=== PATIENT | male | born 1965 | race Caucasian/White ===

== ENCOUNTER 2019-03-13 14:42 | Inpatient (IN) | payer OTHER ==
[2019-03-13 17:28] VITALS: BMI 23.7
--- NOTE | 2019-03-13 19:06 | HP ---
COWS - Scale Resting Pulse: 1= [place] 81-100 Sweatin=Flushed/Facial Moisture Restless Observation: 1= Difficult to Sit Still Pupil Size: 0= Normal to Room Light Bone or Joint Aches: 2= Severe Diffuse Aches Runny Nose/ Eye Tearin= Runny Nose/Eyes GI Upset > 30mins: 3= Vomiting/Diarrhea Tremor Observation: 0= None Yawning Observation: 2= >3x During Session Anxiety or Irritability: 0= None Goose Flesh Skin: 0=Smooth Skin COWS Score: 13 CIWA Score Nausea/Vomitin-Int. Nausea w/Dry Heave Muscle Tremors: None Anxiety: 0-No Anxiety, at Ease Agitation: 1-Slight > Activity Paroxysmal Sweats: 3 Orientation: 0-Oriented Tacttile Disturbances: 0-None Auditory Disturbances: 0-None Visual Disturbances: 2-Mild Sensitivity Headache: 2-Mild CIWA-Ar Total Score: 12 - Admission Criteria OASAS Guidelines: Admission for Medically Managed Detox: Requires at least one of the followin. CIWA greater than 12 2. Seizures within the past 24 hours 3. Delirium tremens within the past 24 hours 4. Hallucinations within the past 24 hours 5. Acute intervention needed for co occurring medical disorder 6. Acute intervention needed for co occurring psychiatric disorder 7. Severe withdrawal that cannot be handled at a lower level of care (continued vomiting, continued diarrhea, abnormal vital signs) requiring intravenous medication and/or fluids 8. Admitting History and Physical - Primary Care Physician PCP: none - Admission Chief Complaint: detox from heroin and alcohol History of Present Illness: Mr. Carmona is a 53 yo M with a pmhx of asthma and arthritis who presents with a desire to enter detox for alcohol and heroin and plans to go to rehab at [facility] in the [place]. He states he drinks 1/2 pint of vodka about 3 days a week and uses heroin daily. He snorts the heroin and states he uses 6-10 bags/ day. 5 days ago he also started using methadone from the street because he couldn't get a hold of any heroin. He states he came in today because he saw his 2 sons and 2 daughters this weekend and that encouraged him to seek treatment. Admission ROS [facility] Allergies/Adverse Reactions: Allergies Allergy/AdvReac Type Severity Reaction Status Date / Time No Known Allergies Allergy Verified 03/13/19 17:08 - Ebola screening Have you traveled outside of the country in the last 21 days: No (N) Have you had contact with anyone from an Ebola affected area: No Do you have a fever: No - Review of Systems Constitutional: Chills, Diaphoresis EENT: denies: Eye Pain, Ear Pain Respiratory: reports: SOB with Exertion. denies: Cough Cardiac: denies: Chest Pain, Irregular Heart Rate, Palpitations, Syncope GI: reports: Diarrhea, Nausea, Vomiting. denies: Constipated : denies: Dysuria Musculoskeletal: reports: Back Pain, Joint Pain, Muscle Pain Integumentary: reports: No Symptoms Reported Neuro: reports: Headache. denies: Numbness, Tingling Endocrine: reports: No Symptoms Reported Hematology: denies: Blood Clots, Easy Bleeding, Easy Bruising Psychiatric: reports: Depressed Other Systems: Reviewed and Negative Patient History - Smoking Cessation Smoking history: Current some day smoker Initiated information on smoking cessation: Yes 'Breaking Loose' booklet given: 03/29/19 - Substances abused Heroin Substance route: Inhalation Frequency: Daily Amount used: 6-10 BAG Age of first use: 26 Date of last use: 03/12/19 Alprazolam (Xanax) Substance route: Oral Frequency: Daily Amount used: 4 STICKS Age of first use: 17 Date of last use: 09/10/18 Alcohol Substance route: Oral Frequency: Daily Amount used: 1/2 PINT Age of first use: 17 Date of last use: 03/13/19 Marijuana/Hashish Substance route: Smoking Frequency: 3-6 times per week Amount used: 1 BAG Age of first use: 16 Date of last use: 03/13/19 Non-Rx Methadone Substance route: Oral Frequency: Daily Amount used: 30 MG Age of first use: 41 Date of last use: 03/07/19 Admission Physical Exam S - Vital Signs Vital Signs: Vital Signs - 24 hr 03/13/19 17:01 Temperature 97.1 F L Pulse Rate 99 H Respiratory 18 Rate Blood Pressure 135/75 - Physical General Appearance: Yes: Within Normal Limits, No Apparent Distress HEENTM: Yes: Within Normal Limits, EOMI, Hearing grossly Normal, Other ( horizontal nystagmus) Respiratory: Yes: Within Normal Limits, Lungs Clear, Normal Breath Sounds Neck: Yes: Within Normal Limits, No masses,lesions,Nodules, Supple Cardiology: Yes: Within Normal Limits, Regular Rhythm, Tachycardia Abdominal: Yes: Within Normal Limits, Normal Bowel Sounds, Non Tender Back: Yes: Within Normal Limits, Normal Inspection. No: CVA Tenderness Extremities: Yes: Within Normal Limits, Normal Capillary Refill, Normal Inspection, Other (decreased ROM at L knee 2/2 chronic arthritis) Neurological: Yes: Within Normal Limits, steel heater II-XII NML intact, Fully Oriented, Motor Strength 5/5, Normal Mood/Affect Integumentary: Yes: Within Normal Limits, Normal Color, Dry, Warm Lymphatic: Yes: Within Normal Limits Breathalyzer - Breathalyzer Breathalyzer: 0.008 Urine Drug Screen - Test Device Lot number: [id number] Expiration date: 10/19/20 - Control Is test valid?: Yes - Results Drug screen NEGATIVE: No Urine drug screen results: THC-Marijuana, MOP-Opiates, BZO-Benzodiazepines, BUP- Suboxone Inpatient Rehab Admission - Rehab Decision to Admit Inpatient rehab admission?: No
--- NOTE | 2019-03-13 19:46 | PN ---
Teaching Attending Note Name of Resident: Augustina George ATTENDING PHYSICIAN STATEMENT I saw and evaluated the patient. I reviewed the resident's note and discussed the case with the resident. I agree with the resident's findings and plan as documented. 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 Pt states he does not drink consistently OBJECTIVE: Vital Signs - 24 hr 03/13/19 17:01 Temperature 97.1 F L Pulse Rate 99 H Respiratory 18 Rate Blood Pressure 135/75 ASSESSMENT AND PLAN: OUD- methadone detox protocol, pt to consider custodial MAT-methadone/suboxone- will discuss with counselor on the floor
[2019-03-13] MEDS ORDERED: MAGNESIUM CITRATE 300 ML BOTTLE PO PRN (19:50)
[2019-03-13] MEDS ORDERED: METHADONE HCL 10 MG TABLET (FOR DETOX USE ONLY) PO ONE ×2 (19:50→20:30)
[2019-03-13] MEDS ORDERED: BISMUTH SUBSALICYLATE 524 MG/30 ML UD PO PRN (19:50)
[2019-03-13] MEDS ORDERED: MAG HYDROX/AL HYDROX/SIMETH 30 ML UNIT-DOSE CUP PO PRN (19:50)
[2019-03-13] MEDS ORDERED: hydrOXYzine PAMOATE 25 MG CAPSULE (FP) PO PRN (19:50)
[2019-03-13] MEDS ORDERED: MAGNESIUM HYDROX 2400MG/30ML ORAL SUSPENSION 30 ML CUP PO PRN (19:50)
[2019-03-13] MEDS ORDERED: IBUPROFEN 400 MG TABLET (FP) PO PRN (19:50)
[2019-03-13] MEDS ORDERED: MENTHOL/PHENOL 1 EACH UD MM PRN (19:50)
[2019-03-13] MEDS ORDERED: ACETAMINOPHEN 325 MG TABLET (FP) PO PRN ×2 (19:50)
[2019-03-13] MEDS ORDERED: cloNIDine HCL 0.1 MG TABLET PO PRN (19:50)
[2019-03-13] MEDS: MELATONIN 5 MG TABLETS PO PRN (20:57)
[2019-03-13] MEDS: THIAMINE HCL 100 MG TABLET (FP) PO SCH (21:16)
[2019-03-14] MEDS ORDERED: METHADONE HCL 5 MG TABLET (FOR DETOX USE ONLY) ONE (08:59)
[2019-03-14] MEDS ORDERED: METHADONE HCL 10 MG TABLET (FOR DETOX USE ONLY) ONE (08:59)
[2019-03-14] MEDS: PRENATAL VITAMINS W/ FOLIC ACID TABLET (FP) PO SCH (09:40)
--- NOTE | 2019-03-14 09:43 | PN ---
[facility] CIWA - CIWA Score Nausea/Vomitin-No Nausea/No Vomiting Muscle Tremors: 3 Anxiety: 2 Agitation: 2 Paroxysmal Sweats: 2 Orientation: 0-Oriented Tacttile Disturbances: 0-None Auditory Disturbances: 0-None Visual Disturbances: 0-None Headache: 0-None Present CIWA-Ar Total Score: 9 BHS COWS - Scale Resting Pulse: 1= [place] 81-100 Sweatin= Chills/Flushing Restless Observation: 1= Difficult to Sit Still Pupil Size: 0= Normal to Room Light Bone or Joint Aches: 2= Severe Diffuse Aches Runny Nose/ Eye Tearin= Nasal Congestion GI Upset > 30mins: 0= None Tremor Observation of Outstretched Hands: 1= Tremor [place], Not Seen Yawning Observation: 1= 1-2x During Session Anxiety or Irritability: 1=Feels Anxious/Irritable Goose Flesh Skin: 0=Smooth Skin COWS Score: 9 [facility] Progress Note (SOAP) Subjective: interrupted sleep restless body aches sweats chills Objective: 03/14/19 09:44 Vital Signs Temperature 98.2 F 03/14/19 09:27 Pulse Rate 90 03/14/19 09:27 Respiratory Rate 18 03/14/19 09:27 Blood Pressure 125/64 03/14/19 09:27 O2 Sat by Pulse Oximetry (%) labs pending aaox3 ambulating no acute distress Assessment: 03/14/19 09:45 withdrawals Plan: continue detox increase fluids pending labs
[2019-03-14] MEDS ORDERED: METHADONE (DETOX) 20 MG, METHADONE (DETOX) 5 MG PO ONE (10:00)
--- NOTE | 2019-03-14 10:17 | EKG ---
Test Reason : Blood Pressure : / mmHG Vent. Rate : 092 BPM Atrial Rate : 092 BPM P-R Int : 132 ms QRS Dur : 078 ms QT Int : 366 ms P-R-T Axes : 078 070 066 degrees QTc Int : 452 ms NORMAL SINUS RHYTHM NORMAL ECG NO PREVIOUS ECGS AVAILABLE Confirmed by Josh Dominguez MD ([id number]) on 03/14/2019 10:17:02 AM Referred By: Confirmed By:Josh Dominguez MD
[2019-03-14 10:21] LABS: HEMATOCRIT 36.5 % (35.4-49); HEMOGLOBIN 12.1 GM/dL (11.7-16.9); MCH 32.6 pg (25.7-33.7); MEAN CELL VOLUME 98.6 fl (80-96); MEAN PLT VOLUME 7.5 fl (7.5-11.1); PLATELET COUNT 199 K/MM3 (134-434); RDW 14.5 % (11.9-15.9); WHITE BLOOD COUNT 6.7 K/mm3 (4.0-10.0)
[2019-03-14 11:44] LABS: ALBUMIN 3.4 g/dl (3.4-5.0); BILIRUBIN,TOTAL 0.7 mg/dL (0.2-1); BLOOD UREA NITROGEN 10.4 mg/dL (7-18); CALCIUM 8.2 mg/dL (8.5-10.1); CREATININE 0.7 mg/dL (0.55-1.3); POTASSIUM 3.9 mmol/L (3.5-5.1)
[2019-03-14] MEDS: THIAMINE HCL 100 MG TABLET (FP) PO SCH (22:18)
[2019-03-14] MEDS: MELATONIN 5 MG TABLETS PO PRN (22:19)
[2019-03-15] MEDS ORDERED: METHADONE HCL 10 MG TABLET (FOR DETOX USE ONLY) PO ONE (10:00)
[2019-03-15] MEDS: PRENATAL VITAMINS W/ FOLIC ACID TABLET (FP) PO SCH (10:35)
[2019-03-15] MEDS: MELATONIN 5 MG TABLETS PO PRN (22:35)
[2019-03-15] MEDS: THIAMINE HCL 100 MG TABLET (FP) PO SCH (22:35)
[2019-03-16] MEDS ORDERED: METHADONE HCL 5 MG TABLET (FOR DETOX USE ONLY) ONE (09:49)
[2019-03-16] MEDS ORDERED: METHADONE HCL 10 MG TABLET (FOR DETOX USE ONLY) ONE (09:49)
[2019-03-16] MEDS ORDERED: METHADONE (DETOX) 10 MG, METHADONE (DETOX) 5 MG PO ONE (10:00)
--- NOTE | 2019-03-16 10:13 | PN ---
[facility] CIWA - CIWA Score Nausea/Vomitin-Mild Nausea/No Vomiting Muscle Tremors: 2 Anxiety: 2 Agitation: 1-Slight > Activity Paroxysmal Sweats: 2 Orientation: 0-Oriented Tacttile Disturbances: 0-None Auditory Disturbances: 0-None Visual Disturbances: 0-None Headache: 1-Very Mild CIWA-Ar Total Score: 9 BHS COWS - Scale Resting Pulse: 1= [place] 81-100 Sweatin= Chills/Flushing Restless Observation: 0= Sits Still Pupil Size: 1= Pupils >than Normal Bone or Joint Aches: 1= Mild Discomfort Runny Nose/ Eye Tearin= Nasal Congestion GI Upset > 30mins: 1= Stomach Cramp Tremor Observation of Outstretched Hands: 1= Tremor [place], Not Seen Yawning Observation: 1= 1-2x During Session Anxiety or Irritability: 1=Feels Anxious/Irritable Goose Flesh Skin: 0=Smooth Skin COWS Score: 9 S Progress Note (SOAP) Subjective: 53 years old male admitted on 03/13/19 to for alcohol benzo opiate withdrawal sx management transferred from to on 03/15/19 due to verbal altercation with female peer patient seems doing well on 3N methadone as opiate detox regimen Objective: 03/15/19 Laboratory Last Values WBC 6.7 K/mm3 (4.0-10.0) 03/14/19 07:00 RBC 3.70 M/mm3 (4.00-5.60) L 03/14/19 07:00 Hgb 12.1 GM/dL (11.7-16.9) 03/14/19 07:00 Hct 36.5 % (35.4-49) 03/14/19 07:00 MCV 98.6 fl (80-96) H 03/14/19 07:00 MCH 32.6 pg (25.7-33.7) 03/14/19 07:00 MCHC 33.0 g/dl (32.0-35.9) 03/14/19 07:00 RDW 14.5 % (11.9-15.9) 03/14/19 07:00 Plt Count 199 K/MM3 (134-434) 03/14/19 07:00 MPV 7.5 fl (7.5-11.1) 03/14/19 07:00 Sodium 141 mmol/L (136-145) 03/14/19 07:00 Potassium 3.9 mmol/L (3.5-5.1) 03/14/19 07:00 Chloride 107 mmol/L (98-107) 03/14/19 07:00 Carbon Dioxide 30 mmol/L (21-32) 03/14/19 07:00 Anion Gap 5 MMOL/L (8-16) L 03/14/19 07:00 BUN 10.4 mg/dL (7-18) 03/14/19 07:00 Creatinine 0.7 mg/dL (0.55-1.3) 03/14/19 07:00 Est GFR (CKD-EPI)AfAm 125.75 03/14/19 07:00 Est GFR (CKD-EPI)NonAf 108.50 03/14/19 07:00 Random Glucose 81 mg/dL (74-106) 03/14/19 07:00 Calcium 8.2 mg/dL (8.5-10.1) L 03/14/19 07:00 Total Bilirubin 0.7 mg/dL (0.2-1) 03/14/19 07:00 AST 16 U/L (15-37) 03/14/19 07:00 ALT 19 U/L (13-61) 03/14/19 07:00 Alkaline Phosphatase 66 U/L (45-117) 03/14/19 07:00 Total Protein 6.0 g/dl (6.4-8.2) L 03/14/19 07:00 Albumin 3.4 g/dl (3.4-5.0) 03/14/19 07:00 RPR Titer Nonreactive (NONREACTIVE) 03/14/19 07:00 lab noted Vital Signs Temperature 99.5 F 03/16/19 09:25 Pulse Rate 73 03/16/19 09:25 Respiratory Rate 18 03/16/19 09:25 Blood Pressure 126/69 03/16/19 09:25 O2 Sat by Pulse Oximetry (%) Assessment: 03/15/19 10:12 alcohol benzo opiate withdrawal Plan: methadone regimen
--- NOTE | 2019-03-16 10:18 | PN ---
[facility] CIWA - CIWA Score Nausea/Vomitin-No Nausea/No Vomiting Muscle Tremors: 2 Anxiety: 2 Agitation: 2 Paroxysmal Sweats: 1-Minimal Palms Moist Orientation: 0-Oriented Tacttile Disturbances: 0-None Auditory Disturbances: 0-None Visual Disturbances: 0-None Headache: 1-Very Mild CIWA-Ar Total Score: 8 BHS COWS - Scale Resting Pulse: 0= [place] 80 or Below Sweatin= Chills/Flushing Restless Observation: 0= Sits Still Pupil Size: 1= Pupils >than Normal Bone or Joint Aches: 1= Mild Discomfort Runny Nose/ Eye Tearin= Nasal Congestion GI Upset > 30mins: 1= Stomach Cramp Tremor Observation of Outstretched Hands: 1= Tremor [place], Not Seen Yawning Observation: 1= 1-2x During Session Anxiety or Irritability: 1=Feels Anxious/Irritable Goose Flesh Skin: 0=Smooth Skin COWS Score: 8 S Progress Note (SOAP) Subjective: 53 years old male admitted on 03/13/19 for alcohol benzo opiate withdrawal sx management treating with methadone detox regimen adding valium 5 mg po prn for alcohol and benzo withdrawal sx social with peers in day room encourage discuss aftercare with staff 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 Objective: 03/16/19 10:16 Vital Signs Temperature 99.5 F 03/16/19 09:25 Pulse Rate 73 03/16/19 09:25 Respiratory Rate 18 03/16/19 09:25 Blood Pressure 126/69 03/16/19 09:25 O2 Sat by Pulse Oximetry (%) Laboratory Last Values WBC 6.7 K/mm3 (4.0-10.0) 03/14/19 07:00 RBC 3.70 M/mm3 (4.00-5.60) L 03/14/19 07:00 Hgb 12.1 GM/dL (11.7-16.9) 03/14/19 07:00 Hct 36.5 % (35.4-49) 03/14/19 07:00 MCV 98.6 fl (80-96) H 03/14/19 07:00 MCH 32.6 pg (25.7-33.7) 03/14/19 07:00 MCHC 33.0 g/dl (32.0-35.9) 03/14/19 07:00 RDW 14.5 % (11.9-15.9) 03/14/19 07:00 Plt Count 199 K/MM3 (134-434) 03/14/19 07:00 MPV 7.5 fl (7.5-11.1) 03/14/19 07:00 Sodium 141 mmol/L (136-145) 03/14/19 07:00 Potassium 3.9 mmol/L (3.5-5.1) 03/14/19 07:00 Chloride 107 mmol/L (98-107) 03/14/19 07:00 Carbon Dioxide 30 mmol/L (21-32) 03/14/19 07:00 Anion Gap 5 MMOL/L (8-16) L 03/14/19 07:00 BUN 10.4 mg/dL (7-18) 03/14/19 07:00 Creatinine 0.7 mg/dL (0.55-1.3) 03/14/19 07:00 Est GFR (CKD-EPI)AfAm 125.75 03/14/19 07:00 Est GFR (CKD-EPI)NonAf 108.50 03/14/19 07:00 Random Glucose 81 mg/dL (74-106) 03/14/19 07:00 Calcium 8.2 mg/dL (8.5-10.1) L 03/14/19 07:00 Total Bilirubin 0.7 mg/dL (0.2-1) 03/14/19 07:00 AST 16 U/L (15-37) 03/14/19 07:00 ALT 19 U/L (13-61) 03/14/19 07:00 Alkaline Phosphatase 66 U/L (45-117) 03/14/19 07:00 Total Protein 6.0 g/dl (6.4-8.2) L 03/14/19 07:00 Albumin 3.4 g/dl (3.4-5.0) 03/14/19 07:00 RPR Titer Nonreactive (NONREACTIVE) 03/14/19 07:00 lab noted Assessment: 03/16/19 10:16 alcohol benzo opiate withdrawal Plan: valium prn and methadone regimens
[2019-03-16] MEDS: METHOCARBAMOL 500 MG TABLET PO PRN ×2 (10:37→22:20)
[2019-03-16] MEDS: PRENATAL VITAMINS W/ FOLIC ACID TABLET (FP) PO SCH (10:38)
[2019-03-16] MEDS: THIAMINE HCL 100 MG TABLET (FP) PO SCH (22:19)
[2019-03-16] MEDS: MELATONIN 5 MG TABLETS PO PRN (22:19)
[2019-03-16] MEDS: diazePAM 5 MG TABLET PO PRN (22:20)
[2019-03-17] MEDS: PRENATAL VITAMINS W/ FOLIC ACID TABLET (FP) PO SCH (09:24)
[2019-03-17] MEDS: diazePAM 5 MG TABLET PO PRN ×2 (09:24→21:56)
[2019-03-17] MEDS ORDERED: METHADONE HCL 10 MG TABLET (FOR DETOX USE ONLY) PO ONE (10:00)
--- NOTE | 2019-03-17 11:37 | PN ---
[facility] CIWA - CIWA Score Nausea/Vomitin-No Nausea/No Vomiting Muscle Tremors: None Anxiety: 2 Agitation: 0-Normal Activity Paroxysmal Sweats: No Perspiration Orientation: 0-Oriented Tacttile Disturbances: 0-None Auditory Disturbances: 0-None Visual Disturbances: 0-None Headache: 1-Very Mild CIWA-Ar Total Score: 3 S COWS - Scale Resting Pulse: 2= [place] 101-120 Sweatin= No chills or Flushing Restless Observation: 0= Sits Still Pupil Size: 0= Normal to Room Light Bone or Joint Aches: 0= None Runny Nose/ Eye Tearin= None GI Upset > 30mins: 0= None Tremor Observation of Outstretched Hands: 0= None Yawning Observation: 0= None Anxiety or Irritability: 2=Irritable/Anxious Goose Flesh Skin: 0=Smooth Skin COWS Score: 4 [facility] Progress Note (SOAP) Subjective: c/o mild withdrawal symptoms. Objective: 03/17/19 11:36 Vital Signs 03/17/19 03/17/19 06:13 09:26 Temperature 98 F 98.2 F Pulse Rate 77 106 H Respiratory 18 18 Rate Blood Pressure 121/74 108/69 Laboratory Last Values WBC 6.7 K/mm3 (4.0-10.0) 03/14/19 07:00 RBC 3.70 M/mm3 (4.00-5.60) L 03/14/19 07:00 Hgb 12.1 GM/dL (11.7-16.9) 03/14/19 07:00 Hct 36.5 % (35.4-49) 03/14/19 07:00 MCV 98.6 fl (80-96) H 03/14/19 07:00 MCH 32.6 pg (25.7-33.7) 03/14/19 07:00 MCHC 33.0 g/dl (32.0-35.9) 03/14/19 07:00 RDW 14.5 % (11.9-15.9) 03/14/19 07:00 Plt Count 199 K/MM3 (134-434) 03/14/19 07:00 MPV 7.5 fl (7.5-11.1) 03/14/19 07:00 Sodium 141 mmol/L (136-145) 03/14/19 07:00 Potassium 3.9 mmol/L (3.5-5.1) 03/14/19 07:00 Chloride 107 mmol/L (98-107) 03/14/19 07:00 Carbon Dioxide 30 mmol/L (21-32) 03/14/19 07:00 Anion Gap 5 MMOL/L (8-16) L 03/14/19 07:00 BUN 10.4 mg/dL (7-18) 03/14/19 07:00 Creatinine 0.7 mg/dL (0.55-1.3) 03/14/19 07:00 Est GFR (CKD-EPI)AfAm 125.75 03/14/19 07:00 Est GFR (CKD-EPI)NonAf 108.50 03/14/19 07:00 Random Glucose 81 mg/dL (74-106) 03/14/19 07:00 Calcium 8.2 mg/dL (8.5-10.1) L 03/14/19 07:00 Total Bilirubin 0.7 mg/dL (0.2-1) 03/14/19 07:00 AST 16 U/L (15-37) 03/14/19 07:00 ALT 19 U/L (13-61) 03/14/19 07:00 Alkaline Phosphatase 66 U/L (45-117) 03/14/19 07:00 Total Protein 6.0 g/dl (6.4-8.2) L 03/14/19 07:00 Albumin 3.4 g/dl (3.4-5.0) 03/14/19 07:00 RPR Titer Nonreactive (NONREACTIVE) 03/14/19 07:00 Labs noted. Assessment: 03/17/19 11:36 AOX3, in no acute respiratory distress. Full ROM, ambulating in the unit. Mild Withdrawal symptoms. For d/c tomorrow. Plan: continue detox. D/C in AM.
[2019-03-17] MEDS: METHOCARBAMOL 500 MG TABLET PO PRN (21:56)
[2019-03-17] MEDS: THIAMINE HCL 100 MG TABLET (FP) PO SCH (21:56)
[2019-03-17] MEDS: MELATONIN 5 MG TABLETS PO PRN (21:56)
[2019-03-18] MEDS ORDERED: METHADONE HCL 5 MG TABLET (FOR DETOX USE ONLY) PO ONE (06:00)
[2019-03-18 09:00] VITALS: BP 131/78; PULSE 85; TEMP 98.5
[2019-03-18] MEDS: PRENATAL VITAMINS W/ FOLIC ACID TABLET (FP) PO SCH (10:52)
--- NOTE | 2019-03-18 12:02 | DS ---
[facility] Detox Discharge Summary Admission Date: 03/13/19 Discharge Date: 03/18/19 - History Present History: Alcohol Dependence, Cannabis Dependence, Opioid Dependence, Sedative Dependence Additional Comments: Pt is medically cleared and discharged today. Pt completed the detox protocol. Pt is encouraged to follow-up with an outpatient CD program and also to follow- up with his pmd. Pt verbalized understanding of the information given. Pt is alert and oriented x3 and in no respiratory distress. Pertinent Past History: h/o asthma, heroin, alcohol, cannabis, and benzo use disorder. - Physical Exam Results Vital Signs: Vital Signs Temperature 98.5 F 03/18/19 09:00 Pulse Rate 85 03/18/19 09:00 Respiratory Rate 18 03/18/19 09:00 Blood Pressure 131/78 03/18/19 09:00 O2 Sat by Pulse Oximetry (%) Vital Signs 03/18/19 03/18/19 06:42 09:00 Temperature 98.0 F 98.5 F Pulse Rate 78 85 Respiratory 18 18 Rate Blood Pressure 120/70 131/78 Laboratory Last Values WBC 6.7 K/mm3 (4.0-10.0) 03/14/19 07:00 RBC 3.70 M/mm3 (4.00-5.60) L 03/14/19 07:00 Hgb 12.1 GM/dL (11.7-16.9) 03/14/19 07:00 Hct 36.5 % (35.4-49) 03/14/19 07:00 MCV 98.6 fl (80-96) H 03/14/19 07:00 MCH 32.6 pg (25.7-33.7) 03/14/19 07:00 MCHC 33.0 g/dl (32.0-35.9) 03/14/19 07:00 RDW 14.5 % (11.9-15.9) 03/14/19 07:00 Plt Count 199 K/MM3 (134-434) 03/14/19 07:00 MPV 7.5 fl (7.5-11.1) 03/14/19 07:00 Sodium 141 mmol/L (136-145) 03/14/19 07:00 Potassium 3.9 mmol/L (3.5-5.1) 03/14/19 07:00 Chloride 107 mmol/L (98-107) 03/14/19 07:00 Carbon Dioxide 30 mmol/L (21-32) 03/14/19 07:00 Anion Gap 5 MMOL/L (8-16) L 03/14/19 07:00 BUN 10.4 mg/dL (7-18) 03/14/19 07:00 Creatinine 0.7 mg/dL (0.55-1.3) 03/14/19 07:00 Est GFR (CKD-EPI)AfAm 125.75 03/14/19 07:00 Est GFR (CKD-EPI)NonAf 108.50 03/14/19 07:00 Random Glucose 81 mg/dL (74-106) 03/14/19 07:00 Calcium 8.2 mg/dL (8.5-10.1) L 03/14/19 07:00 Total Bilirubin 0.7 mg/dL (0.2-1) 03/14/19 07:00 AST 16 U/L (15-37) 03/14/19 07:00 ALT 19 U/L (13-61) 03/14/19 07:00 Alkaline Phosphatase 66 U/L (45-117) 03/14/19 07:00 Total Protein 6.0 g/dl (6.4-8.2) L 03/14/19 07:00 Albumin 3.4 g/dl (3.4-5.0) 03/14/19 07:00 RPR Titer Nonreactive (NONREACTIVE) 03/14/19 07:00 Labs noted. Pertinent Admission Physical Exam Findings: withdrawal symptoms. - Treatment Hospital Course: Detox Protocol Followed, Detoxed Safely, Responded well, Discharged Condition Good - Medication Discharge Medications: Ambulatory Orders Naloxone HCl [Narcan] 4 mg NS ASDIR PRN #1 spray 03/16/19 - Diagnosis (1) Asthma Status: Chronic (2) Heroin use disorder, mild Status: Acute (3) Cannabis abuse Status: Chronic (4) Alcohol use disorder, mild, abuse Status: Chronic - AMA Did Patient Leave Against Medical Advice: No
== END 2019-03-18 09:56 | disposition home or self-care (01) | DRG 773 ==
LOC: YASAS 14:42 → Y6N 20:00 → Y3N 03-15 07:26
PROVIDERS: ADMIT Allergy & Immunology; ATTEND Allergy & Immunology
PROC: HZ2ZZZZ Detoxification Services for Substance Abuse Treatment (ICD-10-PCS; principal; 2019-03-13)
DX: F11.23 Opioid dependence with withdrawal (principal); F10.230 Alcohol dependence with withdrawal, uncomplicated; F13.20 Sedative, hypnotic or anxiolytic dependence, uncomplicated; F12.20 Cannabis dependence, uncomplicated; J45.909 Unspecified asthma, uncomplicated; R00.0 Tachycardia, unspecified
CPT/HCPCS: 36415; 80053; 85027; 86593; 93005; 93010

== ENCOUNTER 2024-06-23 15:42 | Inpatient (IN) | payer OTHER ==
[2024-06-23 16:56] VITALS: BMI 21.0
[2024-06-23] MEDS ORDERED: POLYETHYLENE GLYCOL (HEALTHYLAX) 3350 17 GM PACKET PO PRN (17:53)
[2024-06-23] MEDS ORDERED: BENZOCAINE/MENTHOL (CHLORASEPTIC ) LOZENGE MM PRN (17:53)
[2024-06-23] MEDS ORDERED: ACETAMINOPHEN 325 MG TABLET (FP) PO PRN (17:53)
[2024-06-23] MEDS ORDERED: IBUPROFEN 400 MG TABLET (FP) PO PRN (17:53)
[2024-06-23] MEDS ORDERED: MAG HYDROX/AL HYDROX/SIMETH 30 ML UNIT-DOSE CUP PO PRN (17:53)
[2024-06-23] MEDS ORDERED: MAGNESIUM HYDROX 2400MG/30ML ORAL SUSPENSION 30 ML CUP PO PRN (17:53)
[2024-06-23] MEDS ORDERED: NALOXONE (NARCAN) HCL 4 MG/0.1 ML SPRAY NS PRN (17:53)
[2024-06-23] MEDS ORDERED: BENZONATATE 200 MG CAPSULE PO PRN (17:53)
[2024-06-23] MEDS ORDERED: IBUPROFEN 600 MG TABLET (FP) PO PRN (17:53)
[2024-06-23] MEDS ORDERED: LOPERAMIDE HCL 2 MG CAPSULE PO PRN (17:53)
[2024-06-23] MEDS ORDERED: guaiFENesin 600 MG TABLET.ER (FP) PO PRN (17:53)
[2024-06-23] MEDS ORDERED: BISMUTH SUBSALICYLATE 524 MG/30 ML PO PRN (17:53)
[2024-06-23] MEDS ORDERED: DICYCLOMINE HCL 10 MG CAPSULE PO PRN (17:53)
[2024-06-23] MEDS: cloNIDine HCL 0.1 MG TABLET PO SCH (18:59)
[2024-06-23] MEDS: MELATONIN 5 MG TABLETS PO SCH (22:42)
[2024-06-23] MEDS: THIAMINE 100 MG TABLET PO SCH (22:42)
[2024-06-24] MEDS: methaDONE HCL 40 MG DISPERSABLE TABLET PO ONE (09:45)
[2024-06-24] MEDS: PRENATAL VITAMINS W/ FOLIC ACID TABLET (FP) PO SCH (10:12)
[2024-06-24] MEDS: hydrOXYzine PAMOATE 25 MG CAPSULE (FP) PO PRN (10:12)
[2024-06-24] MEDS: METHOCARBAMOL 500 MG TABLET PO PRN (10:12)
[2024-06-24 13:23] LABS: HEMATOCRIT 36.1 % (40.1-51.0); HEMOGLOBIN 11.5 g/dL (13.7-17.5); MCHC 31.9 g/dl (32.3-36.5); MEAN CELL VOLUME 97.6 fl (79.0-92.2); MEAN PLT VOLUME 9.7 fl (9.4-12.4); PLATELET COUNT 248 x10^3/uL (163-337); RDW 14.6 % (12.2-16.1)
[2024-06-24 13:35] LABS: CHLORIDE 107 mmol/L (98-107); POTASSIUM 4.1 mmol/L (3.5-5.1); SODIUM 140 mmol/L (136-145)
[2024-06-24 13:42] LABS: BLOOD UREA NITROGEN 10.3 mg/dL (7-18); SGOT/AST 19 U/L (15-37); SGPT/ALT 18 U/L (13-61)
[2024-06-24 13:44] LABS: ALBUMIN 3.3 g/dl (3.4-5.0); GLUCOSE,RANDOM 84 mg/dL (74-106)
[2024-06-24 13:45] LABS: ALK PHOS 76 U/L (45-117); BILIRUBIN,TOTAL 0.3 mg/dL (0.2-1); TOT PROT 6.2 g/dl (6.4-8.2)
[2024-06-24 13:46] LABS: CREATININE 0.8 mg/dL (0.55-1.3)
[2024-06-24 13:48] LABS: ANION GAP 4 mmol/L (4-13); CO2 29 mmol/L (21-32)
[2024-06-24 13:50] LABS: CALCIUM 8.7 mg/dL (8.5-10.1)
[2024-06-24 14:33] LABS: HCV DIAGNOSTIC IN-HOUSE W/RFLX NON-REACTIVE (NONREACTIVE)
[2024-06-24 14:35] LABS: HIV INTERPRETATION NEGATIVE (NEGATIVE)
[2024-06-24] MEDS: diazePAM 5 MG TABLET PO SCH (17:58)
[2024-06-24] MEDS: FLU VACCINE (FLULAVAL) PF 45 MCG/0.5 ML SYRINGE 2024-2025 IM ONE (19:25)
[2024-06-25] MEDS ORDERED: methaDONE HCL 10 MG TABLET PO ONE ×2 (09:06→10:00)
[2024-06-25] MEDS: cloNIDine HCL 0.1 MG TABLET PO PRN (17:16)
[2024-06-26] MEDS: diazePAM 5 MG TABLET PO SCH (05:46)
[2024-06-26] MEDS ORDERED: methaDONE HCL 10 MG TABLET PO ONE (10:00)
[2024-06-26] MEDS: methaDONE 40 MG, methaDONE 10 MG PO ONE (10:24)
[2024-06-26] MEDS: ONDANSETRON *ODT* 4 MG TABLET SL PRN (18:30)
[2024-06-27] MEDS: methaDONE 40 MG, methaDONE 20 MG PO SCH (05:36)
[2024-06-27] MEDS: diazePAM 5 MG TABLET PO SCH (05:37)
[2024-06-27] MEDS ORDERED: methaDONE HCL 10 MG TABLET PO SCH (06:00)
[2024-06-27] MEDS ORDERED: methaDONE HCL 10 MG TABLET PO ONE (10:00)
[2024-06-27] MEDS: QUEtiapine FUMARATE 50 MG TABLET PO SCH (22:09)
[2024-06-28] MEDS: diazePAM 5 MG TABLET PO ONE (05:39)
[2024-06-29 08:39] VITALS: BP 146/73; PULSE 74; RESP 18; TEMP 97.4
[2024-06-29] MEDS ORDERED: methaDONE HCL 10 MG TABLET PO ONE (10:00)
== END 2024-06-29 10:40 | disposition home or self-care (01) | DRG 773 ==
LOC: YASAS 15:42 → Y3N 18:09
PROVIDERS: ADMIT Allergy & Immunology; ATTEND Allergy & Immunology
PROC: HZ2ZZZZ Detoxification Services for Substance Abuse Treatment (ICD-10-PCS; principal; 2024-06-23)
DX: F10.230 Alcohol dependence with withdrawal, uncomplicated (principal); F11.20 Opioid dependence, uncomplicated; F14.20 Cocaine dependence, uncomplicated; F12.20 Cannabis dependence, uncomplicated; F17.210 Nicotine dependence, cigarettes, uncomplicated; F39 Unspecified mood [affective] disorder; J45.30 Mild persistent asthma, uncomplicated; R26.89 Other abnormalities of gait and mobility; Z99.89 Dependence on other enabling machines and devices; Z88.0 Allergy status to penicillin
CPT/HCPCS: 36415; 80053; 80305; 80307; 85027; 86780; 86803; 87389; 93005; 93010; Q0162